=== PATIENT | male | born 1935 | race Caucasian/White ===

== ENCOUNTER 2023-12-09 15:31 | Emergency (ER) | payer MEDICARE, OTHER ==
[2023-12-09] MEDS ORDERED: Sodium Chloride 0.9% 10 ML Syringe FLUSH PRN (16:03)
[2023-12-09] MEDS ORDERED: hydrALAZINE 20 MG/ML SDV IVPUSH ONE (16:04)
[2023-12-09 16:18] LABS: HEMATOCRIT 42.7 % (40.0-54.0); HEMOGLOBIN 13.7 g/dL (14.0-18.0); MEAN CORPUSCULAR HGB CONC 32.1 g/dL (33.0-35.0); MEAN CORPUSCULAR VOLUME 93.6 fL (80-100); PLATELET COUNT,PLT 206 10^3/uL (150-450); RED BLOOD CELL COUNT 4.56 10^6/uL (4.6-6.2); WHITE BLOOD CELL COUNT,WBC 7.7 10^3/uL (5.0-10.0)
[2023-12-09 16:35] LABS: BASOPHILS PERCENT AUTO 5.5 % (0.0-1.0); EOSINOPHILS PERCENT AUTO 1.2 % (1.0-3.0); MONOCYTES PERCENT AUTO 15.3 % (2-8)
[2023-12-09] MEDS ORDERED: cefTRIAXone 2 GM Vial IVPUSH ONE (16:44)
[2023-12-09 16:45] LABS: A/G RATIO 0.83; ALBUMIN 3.3 g/dL (3.4-5.0); ANION GAP 15.4 mEq/L (7-13); BILIRUBIN TOTAL 0.3 mg/dL (0.2-1.0); BUN/CREATININE RATIO 20.7 (No establ ref range); C-REACTIVE PROTEIN 0.77 ng/dL (<=0.50); CALCIUM 8.7 mg/dL (8.5-10.1); CREATININE 0.92 mg/dL (0.70-1.30); EST CRCL DRUG DOSING (CG) 54.82 mL/min; MAGNESIUM 1.9 mg/dL (1.8-2.4); POTASSIUM,K 3.4 mmol/L (3.5-5.1); PROTEIN TOTAL,TP 7.3 g/dL (6.4-8.2)
[2023-12-09 17:18] LABS: EOSINOPHILS PERCENT MAN 1 % (1-3); LYMPHOCYTES PERCENT MAN 28 % (20-50); MONOCYTES PERCENT MAN 13 % (2-8); SEG NEUTROPHILS PERCENT MAN 57 % (42-75)
== END 2023-12-09 17:11 | disposition home or self-care (01) ==
LOC: DL.ED 15:31
DX: J18.9 Pneumonia, unspecified organism (principal); I10 Essential (primary) hypertension; Z88.8 Allergy status to other drugs, medicaments and biological substances; Z79.899 Other long term (current) drug therapy
CPT/HCPCS: 36415; 71046; 80053; 83735; 85025; 86140; 96374; 96375; 99283-25; J0360; J0696; J3490